=== PATIENT | male | born 1955 | race Caucasian/White ===

== ENCOUNTER 2018-09-01 10:53 | Emergency (ER) | payer MEDICARE, MEDICAID, SELFPAY ==
[2018-09-01 10:53] VITALS: BP 139/79; PULSE 98; RESP 18; TEMP 36.6; O2SAT 97; BMI 21.4
--- NOTE | 2018-09-01 11:16 | ED.DCSUM_ITS ---
- ER Visit Summary Date of Service: 09/01/18 Chief Complaint: Cough, wheezing History of Present Illness: The patient is a 62 M who has cough and wheezing. Started 2 days ago. He describes nasal congestion as well as productive cough. The cough is productive of white and green sputum. He has heard himself wheezing as well. He has had sweats but denies any fevers. He tried Mucinex and TheraFlu without relief at home. He does have a history of lung cancer and had chemo and radiation in 2018. He also tried his inhaler at home. Physical Examination: Vital signs are reviewed. HEENT exam unremarkable. Heart is regular rate and rhythm. Lungs have diffuse wheezing inspiratory, left greater than right. His abdomen is soft and nontender. His neurologic exam is normal. Test Results: Chest x-ray shows postsurgical changes on the left-hand side. The right lung is clear. There is an increased lucency in the left upper lobe region. Emergency Department Course and Treatment: Patient feels improved after alb uterol and steroids. I will give him steroids as well as doxycycline for home. He will need to call his doctor for further outpatient testing Treatment Plan: [] Disposition: Discharge Impression: Acute bronchitis This note was generated with [employer] dictation software. It may contain incorrect words, spelling, and punctuation that were not noted in review of the chart prior to signing
--- NOTE | 2018-09-01 11:25 | RAD_ITS ---
STUDY: X-RAY CHEST REASON FOR EXAM: Male, 62 years old. Productive cough. History of lung cancer on the left TECHNIQUE: PA and lateral views of the chest. COMPARISON: None. FINDINGS: Lungs are adequately inflated. Extensive scarring and postsurgical change of the left lung however, there is an area of increased lucency in the left midlung field measuring 3.2 x 3.5 cm. No prior imaging is available for comparison. Right lung is clear. There is mild cardiac enlargement. Normal mediastinum and bonnie. Normal visualized pulmonary arteries. Normal visualized aortic arch and descending thoracic aorta. Normal visualized thoracic spine. There is degenerative osteoarthritis of the bilateral shoulders. There is no demonstrated abnormality of the visualized soft tissue structures of the upper abdomen. RAD/Chest PA and Lateral IMPRESSION: Right lung is clear. Postsurgical changes of the left lung with volume loss. Area of increased lucency in the left upper lobe region. No prior imaging is available for comparison. IV contrast enhanced CT chest is recommended to further evaluate Electronically Signed: Jeff Chanel DO at 12:13 EDT Tel , Service support ,
[2018-09-01 11:27] VITALS: BP 117/71; PULSE 87; RESP 19
[2018-09-01] MEDS: Albuterol 2.5 MG/3 ML VIAL.NEB. INHALATION (11:27)
[2018-09-01 11:28] VITALS: PULSE 89; RESP 22
[2018-09-01] MEDS: predniSONE 20 MG Tablet 60 MG PO (11:48)
[2018-09-01 11:50] VITALS: O2SAT 97
--- NOTE | 2018-09-01 13:36 | ED.DEP ---
ED Disposition - Plan for ED Patient: Disposition: Home or Assisted Living Instructions: ED Bronchitis Asthmatic Prescriptions: predniSONE tablet 60 mg PO DAILY #12 tab Doxycycline 100 mg PO BID #20 cap Referrals: Lalitha Doe DO [Primary Care Provider] -
[2018-09-01 13:40] VITALS: RESP 18; O2SAT 96
--- NOTE | 2018-09-06 05:01 | ED.RN ---
OPENED CHART FOR JESSICA MEHTA WHO NEEDED SPOUSE CONTACT INFO FOR NOTIFICATION
== END 2018-09-01 13:41 | disposition home or self-care (01) ==
PROVIDERS: Emergency Provider Emergency Medicine; Family Provider Family Medicine; PCP Family Medicine
DX: J20.9 Acute bronchitis, unspecified (principal); Z85.118 Personal history of other malignant neoplasm of bronchus and lung; Z72.0 Tobacco use
CPT/HCPCS: 71046; 94640; 99283